=== PATIENT | male | born 2000 ===

== ENCOUNTER 2021-02-04 01:09 | Emergency (ER) | payer SELFPAY ==
[2021-02-04 01:29] VITALS: BP 100/57
[2021-02-04 02:31] LABS: Hematocrit 45.4 % (35.5-45.6); Hemoglobin 15.4 gm/dl (11.8-15.2); Mean Corpuscular HGB Conc 34 % (32-34); Mean Corpuscular Volume 95 fl (84-94); Platelet Count 126 K/mm3 (140-440); Red Cell Distribution Width 12.7 % (13.2-15.2)
[2021-02-04 02:33] LABS: BUN/Creatinine Ratio 13; Blood Urea Nitrogen 13 mg/dL (9-20); Calcium 9.1 mg/dL (8.4-10.2); Hemolysis Index 20
[2021-02-04 03:05] LABS: RBC Morphology Normal; Total Cells Counted 100
== END 2021-02-04 07:00 | disposition left against medical advice (07) ==
LOC: EDSEX → ED 01:09
DX: S01.81XA Laceration without foreign body of other part of head, initial encounter (principal); X58.XXXA Exposure to other specified factors, initial encounter; Y93.89 Activity, other specified; Y92.89 Other specified places as the place of occurrence of the external cause; Y99.8 Other external cause status; Z53.21 Procedure and treatment not carried out due to patient leaving prior to being seen by health care provider
CPT/HCPCS: 36415; 80048; 85007; 85025